=== PATIENT | female | born 1960 | race Caucasian/White ===

== ENCOUNTER 2024-06-18 15:10 | Emergency (ER) | payer BC ==
[~2024-06-18] VITALS: Ht 167.6 cm; Wt 80.0 kg
[2024-06-18 15:12] VITALS: O2SAT 94
[2024-06-18] MEDS: ONDANSETRON 4MG ODT PO ONE (15:45)
[2024-06-18] MEDS ORDERED: KETOROLAC 30MG/ML VIAL IM ONE (15:45)
[2024-06-18 16:21] LABS: CHLORIDE 108 mEq/L (98-107); SODIUM 138 mEq/L (136-145)
[2024-06-18 16:22] LABS: CARBON DIOXIDE 22 mEq/L (21-32)
[2024-06-18 16:23] LABS: CALCIUM 9.2 mg/dL (8.7-10.4)
[2024-06-18 16:27] LABS: CREATININE 1.2 mg/dL (0.6-1.0); GLUCOSE 93 mg/dL (70-105)
[2024-06-18 16:28] LABS: UREA NITROGEN BLOOD 20 mg/dL (9-23)
[2024-06-18 16:29] LABS: ALANINE AMINOTRANSFERASE 15 IU/L (10-49); ALBUMIN 3.9 g/dL (3.2-4.8); ASPARTATE AMINOTRANSFERASE 17 IU/L (<34)
[2024-06-18 16:30] LABS: BILIRUBIN DIRECT 0.5 mg/dL (<=3.0); BILIRUBIN TOTAL 1.3 mg/dL (0.1-1.0); PROTEIN TOTAL 6.2 g/dL (6.0-8.3)
[2024-06-18 16:49] LABS: BASOPHILS % 0.3 % (0.0-2.0); EOSINOPHILS % 0.2 % (0.0-5.0); HEMATOCRIT. 43.7 % (36.0-48.0); HEMOGLOBIN. 14.5 g/dL (12.0-16.0); LYMPHOCYTES % 3.2 % (20.0-50.0); MEAN CORPUSCULAR HEMOGLOBIN 29.3 pg (28.0-32.0); MEAN CORPUSCULAR HGB CONC 33.1 g/dL (31.0-37.0); MEAN CORPUSCULAR VOLUME 88.7 fL (81.0-99.0); MEAN PLATELET VOLUME 8.4 fl (7.4-10.4); NEUTROPHILS % 95.3 % (40.0-76.0); PLATELET 251 x1000/uL (130-400); RED BLOOD CELL COUNT 4.93 mill/uL (4.2-5.4); RED CELL DISTRIBUTION WIDTH 13.5 % (11.6-14.6); WHITE BLOOD COUNT 11.7 x1000/uL (4.5-11.0)
[2024-06-18 16:53] LABS: DIFFERENTIAL COMMENT 1
[2024-06-18] MEDS: ONDANSETRON 4MG ODT PO SCH (17:57)
[2024-06-18] MEDS: KETOROLAC 30MG/ML VIAL IM SCH (17:58)
[2024-06-18 22:13] LABS: CLARITY URINE TURBID (CLEAR); COLOR URINE YELLOW (YELLOW); GLUCOSE URINE NEGATIVE (NEGATIVE); KETONES URINE 1+ (NEGATIVE); LEUKOCYTE ESTERASE URINE 3+ (NEGATIVE); NITRITE URINE NEGATIVE (NEGATIVE); OCCULT BLOOD URINE 3+ (NEGATIVE); PH URINE 5.5 (4.5-8.0); PROTEIN URINE 3+ (NEGATIVE); SPECIFIC GRAVITY URINE 1.015 (1.005-1.030); UROBILINOGEN URINE 0.2 E.U./dL (0.2-1.0)
[2024-06-18 22:18] LABS: BACTERIA URINE 2+; RBC URINE 15-25 /hpf (0-2); SQUAMOUS EPITHELIAL CELL URINE 1+ /lpf (RARE/1+); WBC URINE TNTC /hpf (0-2)
[2024-06-18] MEDS ORDERED: ONDA4TAB50 MT (22:39)
[2024-06-18] MEDS ORDERED: CEFP200T13 MT (22:39)
[2024-06-18] MEDS: CEFTRIAXONE SODIUM 1G VIAL IM ONE (23:24)
[2024-06-18] MEDS: LIDOCAINE HCL/PF 1% 10 MG/ML 5ML VIAL INFIL ONE (23:26)
[2024-06-18 23:40] VITALS: BP 105/44; PULSE 84; RESP 18; TEMP 36.94740; O2SAT 97
== END 2024-06-18 23:40 | disposition home or self-care (01) ==
LOC: ER 15:10
DX: N12 Tubulo-interstitial nephritis, not specified as acute or chronic (principal); E11.9 Type 2 diabetes mellitus without complications; F41.9 Anxiety disorder, unspecified; Z87.442 Personal history of urinary calculi
CPT/HCPCS: 80076; 80048; 81003; 83690; 85025; 87086; 87186; 87077; 36415; 76770; 96372; 99285; Q0162; J0696; J1885; J3490; Z7610

== ENCOUNTER 2024-06-19 14:09 | Emergency (ER) | payer BC ==
[~2024-06-19] VITALS: Ht 170.2 cm; Wt 92.0 kg
[~2024-06-19 14:09] MED LIST: CEFP200T13 MT; ONDA4TAB50 MT
[2024-06-19 14:18] VITALS: BP 145/78; TEMP 98.7; O2SAT 99
[2024-06-19 14:28] VITALS: PULSE 79; RESP 18; O2SAT 99
== END 2024-06-19 16:50 | disposition home or self-care (01) ==
LOC: ER 14:19
DX: Z00.00 Encounter for general adult medical examination without abnormal findings (principal); E11.9 Type 2 diabetes mellitus without complications; F41.9 Anxiety disorder, unspecified; Z98.890 Other specified postprocedural states
CPT/HCPCS: 99281